=== PATIENT | female | born 1955 | race Caucasian/White ===

== ENCOUNTER → 2019-02-10 | Outpatient (CLI) | payer OTHER ==
--- NOTE | 2019-02-10 15:04 | CONS ---
CONSULTATION DATE OF SERVICE: 02/10/2019 A 63-year-old lady who has been evaluated in the Sleep Center for possible obstructive sleep apnea-hypopnea syndrome. HISTORY OF PRESENT ILLNESS/SLEEP-WAKE EVALUATION: Patient usual sleep schedule from 10 p.m. to around 7:30 a.m. Sometimes she has problem with falling asleep, but not for a long time. She does have a TV set in bedroom. She sleeps on the side position with snoring. She sleeps by herself so she does not know exactly how loud her snoring is, but sometimes she wakes up with snoring, grinding teeth, episodes of heartburn and before, which is decreased episodes of palpitations. In the morning, patient wakes up tired, worries about her sleep, has episodes of irritability. [place] Sleepiness Scale significantly increased to 14. Usually, she is trying not to take any naps. PAST MEDICAL HISTORY: Positive for episodes of hypertension, hypothyroidism, hyperlipidemia, mitral valve insufficiency. PAST SURGICAL HISTORY: Total left hip replacement, breast reduction, surgery for ectopic in the past. SOCIAL HISTORY: Negative for smoking, alcohol consumption occasional. FAMILY HISTORY: Hypertension, hyperlipidemia, cancer, thyroid problems. REVIEW OF SYSTEMS: Awakenings from sleep, snoring, feeling sleepiness and tiredness during the day. PHYSICAL EXAM: lady without distress, BP 160/85, HR 68, RR 16, height 5 foot 2 inches, weight 168 pounds, body mass index 30.7, temperature 98.2, oxygen saturation at room air 94%. OROPHARYNX: Extremely low position of soft palate. Mallampati 4, restriction of nasal breathing. Neck 13 inches in circumference. ABDOMEN: Slightly obese. Neck Supple, no JVD. Thyroid is not palpable. LUNGS Clear to percussion and to auscultation. Good air exchange. No wheezing or rhonchi. HEART S1, S2 regular. No murmurs, gallops, or rubs. EXTREMITIES No clubbing or cyanosis. ARTIST REPRESENTATIVE Awake, alert, and oriented X3. Cranial nerves 2 to 7 intact. There is no fasciculation or atrophy. noted. No focal deficits observed. IMPRESSION: 1. Snoring, awakenings from sleep with occasional nocturia and heartburn. 2. Extremely low position of soft palate, Mallampati 4. 3. Excessive daytime sleepiness. [place] Sleepiness Scale is 14. 4. Possible obstructive sleep apnea-hypopnea syndrome. 5. Mild obesity, body mass index 30.7. 6. Hypertension in the office, hypertension in the past. 7. Hyperlipidemia. 8. History of mitral valve insufficiency. 9. History of episodes of palpitations. 10.Status post total left hip replacement in 2009. 11.Status post breast reduction 2011. 12.Status post Lasix surgery in 2005. 13.Status post in 1987. PLAN: 1. Polysomnography for evaluation of patient's breathing during sleep. 2. CPAP/BiPAP titration if sleep study confirms obstructive sleep apnea-hypopnea syndrome. 3. Preferable position during sleep on the side. 4. No driving if patient feels any sleepiness. 5. I will see patient for follow up visit to explain results of testing and following plan. 6. Multiple sleep latency testing if sleep study will be negative for obstructive sleep apnea-hypopnea syndrome. Thank you very much for referring this patient for evaluation. Sincerely, Gaurav Higgins MD, PhD, FAASM Diplomat of [employer] Field Adjuster of [facility] [place] MMODL / IJN: [id number] /
== END | disposition home or self-care (01) ==
LOC: SLEEP 13:41
PROVIDERS: ATTEND Internal Medicine
DX: G47.10 Hypersomnia, unspecified (principal); R06.83 Snoring; R35.1 Nocturia; R12 Heartburn; E66.9 Obesity, unspecified; I10 Essential (primary) hypertension; E78.5 Hyperlipidemia, unspecified; Z68.30 Body mass index [BMI] 30.0-30.9, adult; Z86.79 Personal history of other diseases of the circulatory system; Z96.642 Presence of left artificial hip joint; Z98.890 Other specified postprocedural states
CPT/HCPCS: 99211

== ENCOUNTER → 2021-07-12 | Outpatient (CLI) | payer MEDICARE, OTHER ==
--- NOTE | 2021-07-12 21:19 | SFUN ---
SLEEP CENTER FOLLOW UP NOTE DATE OF SERVICE: 07/12/2021 This 65-year-old lady has been followed in Sleep Center for possible obstructive sleep apnea-hypopnea syndrome. I saw the patient in the middle of 2019. At that time her [place] Sleepiness Scale was increased to 14. She had loud snoring and awakenings from sleep. I recommended proceeding with a sleep study, but for different reasons the patient was not able to proceed with the sleep test. At present she continues to have the same problem. She has loud snoring, multiple awakenings from sleep, sometimes episodes of tiredness and sleepiness during the day. [place] Sleepiness Scale today is 6. MEDICATIONS: Melatonin 5 mg immediate release and 5 mg delayed release, Synthroid 88 mcg, Crestor 10 mg once a day, vitamin D3. PHYSICAL EXAMINATION: GENERAL: Pleasant patient in no distress. VITAL SIGNS: BP 154/79, HR 65, RR 15, height 5 feet 1 inch, weight 170.4, body mass index 32.1. Temperature 97.6. Oxygen saturation at room air 96%. HEENT: PERRLA, EOMI, evaluation of oropharynx showed tongue protrudes midline. Extremely low position of soft palate; Mallampati IV. NECK: Supple, no JVD. Thyroid is not palpable. LUNGS: Clear to percussion and to auscultation. Good air exchange. No wheezing or rhonchi. HEART: S1, S2 regular. No murmurs, gallops, or rubs. ABDOMEN: Soft and nontender. Bowel sounds are present. No organomegaly appreciated. EXTREMITIES: No clubbing or cyanosis. SUPPLY CHAIN ASSISTANT: Awake, alert, and oriented X3. Cranial nerves 2 to 7 intact. There is no fasciculation or atrophy. noted. No focal deficits observed. IMPRESSION: 1. Snoring, awakenings from sleep with nocturia, episodes of significant excessive daytime sleepiness, extremely low position of soft palate, Mallampati IV; possible obstructive sleep apnea-hypopnea syndrome. 2. Hypertension in the office during the previous visit and today again. 3. Obesity. Body mass index 32.1. 4. Hyperlipidemia. 5. History of mitral valve insufficiency. 6. History of episodes of palpitations. 7. Status post total left hip replacement in 2009. 8. Status post breast reduction in 2011. 9. Status post LASIK surgery in 2005. 10.Status post neck surgery. 11.Status post in 1987. PLAN: 1. Home sleep apnea test for evaluation of patient's breathing during sleep. 2. Watching and losing weight. 3. Sleep hygiene with regular time in bed for at least 7-1/2 to 8 hours. 4. No driving if feeling sleepiness. 5. Following plan after reviewing results of sleep test. Thank you very much for allowing me to participate in the management of your patient. Sincerely, Gaurav Higgins MD, PhD, FAASM Diplomat of [employer] Sleep Medicine Board of [employer] Student [facility] [place] MMODL / IJN: [id number] /
== END ==
LOC: SLEEP 14:01
PROVIDERS: ATTEND Internal Medicine
DX: G47.10 Hypersomnia, unspecified (principal); R35.1 Nocturia; I10 Essential (primary) hypertension; E66.9 Obesity, unspecified; E78.5 Hyperlipidemia, unspecified; Z68.32 Body mass index [BMI] 32.0-32.9, adult; Z86.79 Personal history of other diseases of the circulatory system; Z96.642 Presence of left artificial hip joint

== ENCOUNTER → 2021-11-14 | Outpatient (CLI) | payer MEDICARE, OTHER ==
--- NOTE | 2021-11-14 18:14 | SFUN ---
SLEEP CENTER FOLLOW UP NOTE DATE OF SERVICE: 11/14/2021 66-year-old lady has been followed in Sleep Center for treatment of obstructive sleep apnea-hypopnea syndrome. Recently the patient had a home sleep apnea test which showed obstructive sleep apnea- hypopnea syndrome. Subsequently after that the patient was started on treatment with CPAP in automatic regimen. She feels better with the machine, sleeps better and feels better during the day. She changed her mask several times. Presently with a Dream Wear under the nose mask. She feels more comfortable. I checked her CPAP unit. Range of the pressure 5-15, average pressure 10.6. Usage is 100% of nights and 97% of nights more than 4 hours, average 7 hours 24 minutes per night. Average leak is 14.3 L/minute which is acceptable range. Apnea-hypopnea index is 2.1 which is normal. [place] Sleepiness Scale today is 4. PHYSICAL EXAMINATION: GENERAL: Patient in no distress. BP 168/84, HR 75, RR 16, weight 175.2, temperature 97.4, oxygen saturation at room air 95%. HEENT: PERRLA, EOMI, evaluation of oropharynx showed tongue protrudes midline. NECK: Supple, no JVD. Thyroid is not palpable. LUNGS: Clear to percussion and to auscultation. Good air exchange. No wheezing or rhonchi. HEART: S1, S2 regular. No murmurs, gallops, or rubs. ABDOMEN: Obese. Soft and nontender. Bowel sounds are present. No organomegaly appreciated. EXTREMITIES: No clubbing or cyanosis. DEHAIRER: Awake, alert, and oriented X3. Cranial nerves 2 to 7 intact. There is no fasciculation or atrophy. noted. No focal deficits observed. IMPRESSION: 1. Obstructive sleep apnea-hypopnea syndrome. 2. Hypertension in the office. 3. Hyperlipidemia. 4. Obesity. 5. History of mitral valve insufficiency. 6. History of episodes of palpitations. 7. Status post left hip replacement in 2009. 8. Status post breast reduction in 2011. 9. Status post LASIK surgery 2005. 10.Status post neck surgery. PLAN: 1. Patient will continue to use PAP equipment every night for the whole night. 2. Sleep hygiene with regular time in bed for at least 7-1/2 to 8 hours. 3. Precautions related to driving. No driving if feeling sleepiness. 4. I will maintain all necessary prescription for PAP supplies including mask, tube, filters. 5. Watching weight. 6. Follow-up visit in 6 months or earlier if patient has any problems. Thank you very much for allowing me to participate in management of your patient. Sincerely, Gaurav Higgins MD, PhD, FAASM Diplomat of [employer] [employer] Sleep Medicine Board of [place] [employer] Decal Transferrer of [facility] [place] MMODL / IJN: [id number] /
== END ==
LOC: SLEEP 13:17
PROVIDERS: ATTEND Internal Medicine
DX: G47.33 Obstructive sleep apnea (adult) (pediatric) (principal); I10 Essential (primary) hypertension; E78.5 Hyperlipidemia, unspecified; E66.9 Obesity, unspecified; Z86.79 Personal history of other diseases of the circulatory system; Z96.652 Presence of left artificial knee joint; Z98.890 Other specified postprocedural states; Z96.642 Presence of left artificial hip joint; Z99.89 Dependence on other enabling machines and devices

== ENCOUNTER → 2022-07-03 | Outpatient (CLI) | payer MEDICARE, OTHER ==
--- NOTE | 2022-07-03 13:39 | P.PN ---
Subjective DATE: 07/03/2022 FOLLOW UP VISIT. Patient with obstructive sleep apnea hypopnea syndrome return to sleep center for follow-up visit. Information from previous visit have been reviewed. Patient is using PAP equipment every night for the whole night, getting PAP supplies in time. The patient does not have significant problems with the mask, PAP unit and humidification. [place] sleepiness scale is 3. I checked information from PAP unit. PAP unit pressure 5-15, average 11 cm H2O. Usage is 95 % for more then 4 hours, average 8 hours per night. Leak is 11 l/m, which is in acceptable range. Apnea Hypopnea Index is 1.8, which is normal. MEDICATIONS:1. Synthroid 88 g once a day 2. Vitamin D3 3. Melatonin 4. Turmeric 5. Red yeast rice During physical exam: GENERAL: A pleasant patient without any distress. VITAL SIGNS: BP 160/95, HR 61, RR 16, weight 171.4, temperature 96.2, oxygen saturation at room air 94 % . HEENT: PERRLA, EOMI.. NECK: Supple. No JVD. LUNGS: Clear to percussion and to auscultation. Good air exchange. No wheezing or rhonchi. HEART: S1, S2 regular. ABDOMEN: Soft and nontender.[] EXTREMITIES: No clubbing or cyanosis. PRODUCT TESTER FIBERGLASS: Awake, alert, and oriented x3. No focal deficit. Impressions: 1. Obstructive sleep apnea-hypopnea syndrome. Patient demonstrated great compliance with treatment, benefiting from treatment. 2. Hypertension in the office. 3. Hyperlipidemia. 4. History of insufficient mitral valve. 5. History of episodes of palpitations. 6. Status post left hip replacement in 2009. 7. Status post breast reduction 2011. 8. Status post neck surgery. 9. Status post Lasic surgery. Plan: 1. Continue using PAP equipment every night for the whole night. 2. To change air filter at least 1-2 times per month. 3. PAP unit should stay lower then position of the head. 4. Advised patient to remove all remaining water from humidifier canister daily and make it dry after each usage. Refill canister with fresh distilled water before each usage. 5. Sleep hygiene with regular time in bed for at least 8 hours. 6. Precautions related to driving. No driving if feel any sleepiness. 7. I will maintain prescription for PAP supplies including mask, tube, filters. 8. Follow up visit in 6 months or earlier if patient has any problems. 9. Watching weight. Thank you very much for allowing me to participate in the management of your patient. Gaurav Higgins MD, PhD, FAASM. Diplomat of [place] [employer], Sleep Medicine Board by [place] [employer] [facility] [place]
== END ==
LOC: SLEEP 13:08
PROVIDERS: ATTEND Internal Medicine
DX: G47.33 Obstructive sleep apnea (adult) (pediatric) (principal); Z99.89 Dependence on other enabling machines and devices; I10 Essential (primary) hypertension; E78.5 Hyperlipidemia, unspecified; Z86.79 Personal history of other diseases of the circulatory system; Z96.642 Presence of left artificial hip joint; Z98.890 Other specified postprocedural states
CPT/HCPCS: 99212

== ENCOUNTER → 2023-01-08 | Outpatient (CLI) | payer MEDICARE, OTHER ==
--- NOTE | 2023-01-08 13:59 | P.PN ---
Subjective DATE: 01/08/2023 FOLLOW UP VISIT. Patient with obstructive sleep apnea hypopnea syndrome return to sleep center for follow-up visit. Information from previous visit have been reviewed. Patient is using PAP equipment every night for the whole night, getting PAP supplies in time. The patient does not have significant problems with the mask, PAP unit and humidification. [place] sleepiness scale is 3, which is normal. I checked information from PAP unit and extubated to the patient. PAP unit pressure 5-15, average 9 cm H2O. Usage is 90% and 87 % for more then 4 hours, average 7 hours per night. Leak is 14.3 l/m, which is in acceptable range. Apnea Hypopnea Index is 1.5, which is normal. MEDICATIONS:1. Red yeast rice 2. Turmeric During physical exam: GENERAL: A pleasant patient without any distress. VITAL SIGNS: BP 166/91, HR 63, RR 12, weight 171, temperature 97.7, oxygen saturation at room air 98 % . HEENT: PERRLA, EOMI.low position of soft palate, Mallapati 3. NECK: Supple. No JVD. LUNGS: Clear to percussion and to auscultation. Good air exchange. No wheezing or rhonchi. HEART: S1, S2 regular. ABDOMEN: Soft and nontender. Slightly obese EXTREMITIES: No clubbing or cyanosis. JOURNEYMAN GLAZIER: Awake, alert, and oriented x3. No focal deficit. Impressions: 1. Obstructive sleep apnea-hypopnea syndrome. Patient demonstrated great compliance with treatment, benefiting from treatment. 2. Mild obesity BMI 31.7. 3. Increased blood pressure in the office again. 4. History of insufficient mitral valve. 5. Status post left hip replacement. 6. Status post breast reduction. 7. Status post neck surgery. 8. Status post Lasic surgery. Plan: 1. Continue using PAP equipment every night for the whole night. 2. To change air filter at least 1-2 times per month. 3. PAP unit should stay lower then position of the head. 4. Advised patient to remove all remaining water from humidifier canister daily and make it dry after each usage. Refill canister with fresh distilled water before each usage. 5. Sleep hygiene with regular time in bed for at least 8 hours. 6. Precautions related to driving. No driving if feel any sleepiness. 7. I will maintain prescription for PAP supplies including mask, tube, filters. 8. Watching and losing weight. 9. Follow up visit in 6 months or earlier if patient has any problems. Thank you very much for allowing me to participate in the management of your patient. Gaurav Higgins MD, PhD, FAASM. Diplomat of [place] [employer], Sleep Medicine Board by [place] [employer] Experimental Preflight Mechanic [facility] [place]
== END ==
LOC: SLEEP 13:29
PROVIDERS: ATTEND Internal Medicine
DX: G47.33 Obstructive sleep apnea (adult) (pediatric) (principal); E66.9 Obesity, unspecified; I10 Essential (primary) hypertension; Z68.31 Body mass index [BMI] 31.0-31.9, adult; Z96.642 Presence of left artificial hip joint; Z98.890 Other specified postprocedural states; Z99.89 Dependence on other enabling machines and devices; Z95.2 Presence of prosthetic heart valve
CPT/HCPCS: 99212